=== PATIENT | male | born 1940 | race African-American/Black ===

== ENCOUNTER 2020-04-09 08:58 | Inpatient (IN) ==
[2020-04-09] MEDS ORDERED: DEXTROSE 50% 25 GM/50 ML VIAL IV PRN (09:26)
[2020-04-09] MEDS ORDERED: GLUCAGON 1 MG VIAL IM PRN ×2 (09:26)
[2020-04-09] MEDS ORDERED: DEXTROSE 10% 250 ML BAG IV PRN (09:26)
[2020-04-09] MEDS ORDERED: CEFUROXIME INJ 1,500 MG in SYRINGE 1 EACH IV ONE (09:26)
[2020-04-09] MEDS ORDERED: SODIUM CHLORIDE 0.9% 1,000 ML IV SCH (09:30)
[2020-04-09 09:59] LABS: Basophils % 0.4 % (0.0-0.8); Eosinophils # 0.1 10*3/uL (0.0-0.87); Hematocrit 29.2 VOL% (42.0-52.0); Hemoglobin 9.3 GM/DL (14.0-18.0); Immature Granulocytes % 0.4 %; Immature Granulocytes Absolute 0.02 #; Lymphocytes # 1.4 10*3/uL (1.4-4.0); Lymphocytes % 25.2 % (21.2-54.2); Mean Corpuscular HGB Conc 31.8 GM/DL (32-36); Mean Corpuscular Volume 93.3 FL (87-102); Mean Platelet Volume 9.8 FL (9.6-12.0); Monocytes % 7.1 % (1.7-12.7); Neutrophils % 64.9 % (38.7-73.9); Platelet Count 324 T/CUMM (130-400); Red Blood Count 3.13 MC/CUMM (3.8-5.5); Red Cell Distribution Width 14.7 % (9.3-17.3); White Blood Count 5.6 T/CUMM (4-12)
[2020-04-09 11:58] LABS: ABG Base Excess -1.8 MMOL/L (-2.5-2.5); ABG HCO3 22.9 MMOL/L (20-26); ABG PCO2 36.4 MM HG (35-48); ABG PO2 95.9 MM HG (80-95); ABG TCO2 20.7 MMOL/L (23-27); Allen Test Positive; Pt O2 Delivery Device Room Air
[2020-04-09] MEDS: INSULIN LISPRO 100 UNIT/ML SUBCUT SCH ×3 (13:42→22:03)
[2020-04-09] MEDS: oxyCODONE/ACETAMINOPHEN 5-325 MG TABLET PO PRN ×2 (14:17→23:53)
[2020-04-09 16:00] LABS: Alanine Aminotransferase 22 U/L (16-61); Albumin 2.7 G/DL (3.4-5.0); Alkaline Phosphatase 97 U/L (45-117); Aspartate Amino Transferase 23 U/L (0-37); Bilirubin,Total < 0.39 MG/DL (0.2-1.0); Blood Urea Nitrogen 29 MG/DL (7-18); Calcium 9.6 MG/DL (8.5-10.1); Estimated Glom Filtration Rate 69 ML/MIN; Glucose 246 MG/DL (74-106); Osmolality,Calculated 288.7 MOS/KG (273-304)
[2020-04-09] MEDS: CHLORHEXIDINE 4% SOLN 118 ML BOTTLE TOP SCH ×2 (16:38→22:03)
[2020-04-09] MEDS ORDERED: FAMOTIDINE 20 MG TABLET PO ONE (17:25)
[2020-04-09] MEDS ORDERED: DIAZEPAM 5 MG TABLET PO ONE (17:25)
[2020-04-09] MEDS: CHLORHEXIDINE 0.12% ORAL RINSE 60 ML BOTTLE SWISH/SPIT SCH (22:32)
[2020-04-10] MEDS: CHLORHEXIDINE 4% SOLN 118 ML BOTTLE TOP SCH ×2 (04:10→13:58)
[2020-04-10] MEDS ORDERED: VANCOMYCIN 1,000 MG VIAL ONE (04:23)
[2020-04-10] MEDS ORDERED: PAPAVERINE 60 MG/2 ML VIAL ONE (04:23)
[2020-04-10] MEDS ORDERED: VANCOMYCIN 500 MG VIAL ONE (04:23)
[2020-04-10] MEDS ORDERED: FAMOTIDINE 20 MG TABLET PO ONE (05:00)
[2020-04-10] MEDS ORDERED: CEFUROXIME INJ 1,500 MG in SYRINGE 1 EACH IV ONE (05:00)
[2020-04-10] MEDS ORDERED: SODIUM CHLORIDE 0.9% 1,000 ML IV SCH (05:00)
[2020-04-10] MEDS ORDERED: DIAZEPAM 5 MG TABLET PO ONE (05:00)
[2020-04-10] MEDS ORDERED: CALCIUM CHLORIDE 1,000 MG/10 ML VIAL IV ONE (05:51)
[2020-04-10] MEDS ORDERED: MIDAZOLAM 10 MG/2 ML VIAL ONE (05:52)
[2020-04-10] MEDS ORDERED: MINERAL OIL/PETROLATUM OPH OINT 3.5 GM TUBE ONE (05:52)
[2020-04-10] MEDS ORDERED: VECURONIUM 10 MG VIAL IV ONE (05:52)
[2020-04-10] MEDS ORDERED: SUFentanil 250 MCG/5 ML AMP ONE (05:52)
[2020-04-10] MEDS ORDERED: AMINOCAPROIC ACID 5,000 MG/20 ML VIAL ONE (05:52)
[2020-04-10 07:39] LABS: ABG HCO3 23.6 MMOL/L (20-26); ABG PCO2 34.6 MM HG (35-48); ABG PH 7.428 (7.35-7.45); Glucose Heart Surgery 155 MG/DL (74-106); Hematocrit Heart Surgery 28.1 PERCENT (42-52); Hemoglobin Heart Surgery 9.1 G/DL (14.0-18.0); Ionized Calcium Arterial 1.19 MMOL/L (1.21-1.46); PCO2 Patient Temp Arterial 34.6 MMHG; PH Patient Temp Arterial 7.428; Patient Temperature 37 CELCIUS; Potassium Heart/CVR 3.9 MMOL/L (3.5-5.1); Sodium Heart/CVR 138 MMOL/L (135-145)
[2020-04-10 08:17] LABS: Apearance,Urine CLEAR (Clear); Bilirubin,Urine Negative (Negative); Blood, Urine Negative (Negative); Glucose,Urine (UA) 50 mg/dL (Negative); Ketones,Urine Negative (Negative); Mucus,Urine Occasional /LPF (Occasional); Nitrite,Urine Negative (Negative); Protein,Urine Negative; RBC,Urine 2 /HPF (0-4); Urine Color Straw (Yellow); Urine Specific Gravity 1.009 (1.001-1.035); Urine Urobilinogen < 2.0 EU/DL (0.2-1.0)
[2020-04-10 10:03] LABS: Hematocrit Heart Surgery 21.5 PERCENT (42-52); Hemoglobin Heart Surgery 6.9 G/DL (14.0-18.0); PCO2 Patient Temp Venous 37.2 MM HG; PH Patient Temp Venous 7.409; PO2 Patient Temp Venous 35.4 MM HG; Potassium Heart/CVR 5.2 MMOL/L (3.5-5.1); VBG Base Excess -0.7 MEQ/L (0-4); VBG HCO3 23.6 MEQ/L (24-28); VBG Oxygen Saturation 76.6 %; VBG PH 7.366; VBG PO2 43.6 MMHG (17-40)
[2020-04-10 10:36] LABS: Hemoglobin Heart Surgery 8.1 G/DL (14.0-18.0); PCO2 Patient Temp Venous 31.7 MM HG; PH Patient Temp Venous 7.476; PO2 Patient Temp Venous 36.8 MM HG; Potassium Heart/CVR 4.4 MMOL/L (3.5-5.1); VBG Base Excess -0.6 MEQ/L (0-4); VBG HCO3 23.5 MEQ/L (24-28); VBG Oxygen Saturation 81.7 %; VBG PCO2 36.2 MMHG (41-51); VBG PH 7.431; VBG PO2 45.5 MMHG (17-40)
[2020-04-10] MEDS ORDERED: ALBUMIN 5% 12.5 GM/250 ML VIAL IV ONE ×3 (10:49→11:28)
[2020-04-10] MEDS ORDERED: PHENYLEPHRINE DRIP 40 MG/250 ML PREMIX IV ONE (10:55)
[2020-04-10] MEDS ORDERED: POTASSIUM CHLORIDE RIDER 100 ML IV ONE (10:56)
[2020-04-10 11:05] LABS: Hemoglobin Heart Surgery 8.2 G/DL (14.0-18.0); PCO2 Patient Temp Venous 32.7 MM HG; PH Patient Temp Venous 7.451; PO2 Patient Temp Venous 34.8 MM HG; Potassium Heart/CVR 4.8 MMOL/L (3.5-5.1); VBG Base Excess -1.4 MEQ/L (0-4); VBG HCO3 22.3 MEQ/L (24-28); VBG PCO2 32.7 MMHG (41-51); VBG PH 7.451; VBG PO2 34.8 MMHG (17-40)
[2020-04-10 11:25] LABS: ABG Base Excess -2.8 MMOL/L (-2.5-2.5); ABG HCO3 22.1 MMOL/L (20-26); ABG PH 7.407 (7.35-7.45); ABG TCO2 20.1 MMOL/L (23-27); Glucose Heart Surgery 278 MG/DL (74-106); Hematocrit Heart Surgery 23.7 PERCENT (42-52); Hemoglobin Heart Surgery 7.6 G/DL (14.0-18.0); Ionized Calcium Arterial 1.17 MMOL/L (1.21-1.46); PH Patient Temp Arterial 7.407; Patient Temperature 37 CELCIUS; Potassium Heart/CVR 4.1 MMOL/L (3.5-5.1); Sodium Heart/CVR 135 MMOL/L (135-145)
[2020-04-10] MEDS ORDERED: LIDOCAINE 2% 5 ML VIAL ONE ×2 (11:27→12:08)
[2020-04-10] MEDS ORDERED: MANNITOL 100 GM/500 ML BAG IV ONE (11:27)
[2020-04-10] MEDS ORDERED: methylPREDNISolone SOD SUC 1,000 MG/8 ML VIAL ONE (11:28)
[2020-04-10] MEDS ORDERED: SODIUM BICARBONATE 50 MEQ/50 ML VIAL IV ONE (11:28)
[2020-04-10] MEDS ORDERED: MAGNESIUM SULFATE 5 GM/10 ML VIAL IV ONE (11:28)
[2020-04-10] MEDS ORDERED: PROTAMINE SULFATE 250 MG/25 ML VIAL IV ONE (11:28)
[2020-04-10] MEDS ORDERED: ALBUMIN 25% 25 GM/100 ML VIAL IV ONE (11:28)
[2020-04-10] MEDS ORDERED: DEXTROSE 5% KCL 20 MEQ 20 MEQ/1,000 ML BAG IV ONE (11:28)
[2020-04-10] MEDS ORDERED: HEPARIN 10,000 UNIT/10 ML VIAL ONE (11:28)
[2020-04-10] MEDS ORDERED: FUROSEMIDE 20 MG/2 ML VIAL ONE (11:29)
[2020-04-10] MEDS ORDERED: PROTAMINE SULFATE 50 MG/5 ML VIAL IV ONE (11:29)
[2020-04-10] MEDS ORDERED: INSULIN REGULAR 100 UNIT/ML IV ONE (11:57)
[2020-04-10] MEDS ORDERED: NITROPRUSSIDE 100 MG in DEXTROSE 5% 250 ML IV PRN (11:57)
[2020-04-10] MEDS ORDERED: POTASSIUM CHLORIDE RIDER 10 MEQ in PREMIX 1 EACH IV PRN (11:57)
[2020-04-10] MEDS ORDERED: VECURONIUM 10 MG VIAL IV PRN ×2 (11:57)
[2020-04-10] MEDS ORDERED: MAGNESIUM SULF RIDER 2 GM in PREMIX 1 EACH IV PRN (11:57)
[2020-04-10] MEDS ORDERED: MIDAZOLAM 2 MG/2 ML VIAL IV PRN (11:57)
[2020-04-10] MEDS ORDERED: DEXTROSE 10% 250 ML BAG IV PRN ×2 (11:57)
[2020-04-10] MEDS ORDERED: ACETAMINOPHEN 650 MG SUPP RECTAL PRN (11:57)
[2020-04-10] MEDS ORDERED: MIDAZOLAM 10 MG/2 ML VIAL IV PRN (11:57)
[2020-04-10] MEDS ORDERED: LACTATED RINGERS 250 ML IV PRN (11:57)
[2020-04-10] MEDS ORDERED: CALCIUM CHLORIDE 1,000 MG/10 ML SYRINGE IV PRN (11:57)
[2020-04-10] MEDS ORDERED: INSULIN REGULAR 100 UNIT/ML IV PRN (11:57)
[2020-04-10] MEDS ORDERED: PHENYLEPHRINE DRIP 40 MG/250 ML PREMIX IV PRN (11:57)
[2020-04-10] MEDS ORDERED: MAGNESIUM SULF RIDER 4 GM in PREMIX 1 EACH IV PRN (11:57)
[2020-04-10] MEDS ORDERED: CHLORHEXIDINE 4% SOLN 118 ML BOTTLE TOP PRN (11:57)
[2020-04-10] MEDS ORDERED: MORPHINE 10 MG/1 ML VIAL IV PRN (11:57)
[2020-04-10] MEDS ORDERED: ONDANSETRON 4 MG/2 ML VIAL IV PRN (11:57)
[2020-04-10] MEDS: LACTATED RINGERS 1,000 ML IV PRN ×3 (12:00→16:47)
[2020-04-10] MEDS ORDERED: SODIUM CHLORIDE 0.45% 1,000 ML IV SCH ×2 (12:00)
[2020-04-10] MEDS ORDERED: SEVOFLURANE 1 UNIT/15 MINUTE INH ONE (12:08)
[2020-04-10] MEDS ORDERED: PHENYLEPHRINE DRIP 20 MG/250 ML PREMIX IV ONE (12:08)
[2020-04-10] MEDS ORDERED: HEPARIN/NACL 0.9% 2 UNITS/ML 500 ML IV ONE (12:08)
[2020-04-10] MEDS ORDERED: SODIUM CHLORIDE 0.9% 2,000 ML IV ONE (12:08)
[2020-04-10] MEDS ORDERED: SODIUM CHLORIDE 0.9% 100 ML IV ONE (12:08)
[2020-04-10] MEDS ORDERED: SODIUM CHLORIDE 0.9% 250 ML IV ONE (12:08)
[2020-04-10] MEDS ORDERED: ETOMIDATE 40 MG/20 ML VIAL IV ONE (12:08)
[2020-04-10 12:25] LABS: ABG Base Excess -0.5 MMOL/L (-2.5-2.5); ABG HCO3 23.3 MMOL/L (20-26); ABG Oxygen Saturation 98.9 % (95-100); ABG PCO2 34.9 MM HG (35-48); ABG PH 7.443 (7.35-7.45); ABG PO2 213.3 MM HG (80-95); ABG TCO2 24.4 MMOL/L (23-27); Glucose Heart Surgery 226 MG/DL (74-106); Hemoglobin Heart Surgery 8.5 G/DL (14.0-18.0); Potassium Heart/CVR 3.9 MMOL/L (3.5-5.1)
[2020-04-10 12:31] LABS: Basophils % 0.3 % (0.0-0.8); Eosinophils # 0.1 10*3/uL (0.0-0.87); Eosinophils % 0.8 % (0.00-10.9); Hematocrit 25.9 VOL% (42.0-52.0); Hemoglobin 8.2 GM/DL (14.0-18.0); Immature Granulocytes % 0.8 %; Immature Granulocytes Absolute 0.05 #; Lymphocytes % 15.5 % (21.2-54.2); Mean Corpuscular HGB Conc 31.7 GM/DL (32-36); Mean Corpuscular Volume 93.2 FL (87-102); Monocytes % 7.3 % (1.7-12.7); Neutrophils % 75.3 % (38.7-73.9); Platelet Count 265 T/CUMM (130-400); Red Blood Count 2.78 MC/CUMM (3.8-5.5); Red Cell Distribution Width 14.5 % (9.3-17.3); White Blood Count 6.3 T/CUMM (4-12)
[2020-04-10 12:39] LABS: INR 1.1; PT Patient Result 11.9 SECS (9.8-11.9); Partial Thromboplastin Time 29.5 SECS (23.9-33.8)
[2020-04-10] MEDS: POTASSIUM CHLORIDE RIDER 20 MEQ in PREMIX 1 EACH IV PRN ×2 (13:00→14:50)
[2020-04-10 13:11] LABS: Albumin 2.6 G/DL (3.4-5.0); Bilirubin,Total 0.6 MG/DL (0.2-1.0); Calcium 9.3 MG/DL (8.5-10.1); Osmolality,Calculated 283.7 MOS/KG (273-304); Total Protein 6.3 G/DL (6.4-8.3)
[2020-04-10 13:26] LABS: Troponin I 1.53 NG/ML (0.00-0.045)
[2020-04-10] MEDS: INSULIN REGULAR DRIP 100 ML IV SCH (13:26)
[2020-04-10] MEDS: INSULIN LISPRO 100 UNIT/ML SUBCUT SCH (13:57)
[2020-04-10] MEDS: CHLORHEXIDINE 0.12% ORAL RINSE 60 ML BOTTLE SWISH/SPIT SCH ×2 (13:59→20:13)
[2020-04-10 14:30] LABS: ABG Base Excess -2.9 MMOL/L (-2.5-2.5); ABG Oxygen Saturation 99.3 % (95-100); ABG PCO2 39.5 MM HG (35-48); ABG PH 7.359 (7.35-7.45); Glucose Heart Surgery 203 MG/DL (74-106); Hemoglobin Heart Surgery 11.4 G/DL (14.0-18.0); Potassium Heart/CVR 4.4 MMOL/L (3.5-5.1)
[2020-04-10] MEDS: ALBUMIN 5% 12.5 GM in PREMIX 1 EACH IV PRN ×4 (14:30→20:24)
[2020-04-10] MEDS: CEFUROXIME INJ 1,500 MG in SYRINGE 1 EACH IV SCH (19:19)
[2020-04-10 19:40] LABS: ABG Base Excess -2.2 MMOL/L (-2.5-2.5); ABG HCO3 22.6 MMOL/L (20-26); ABG Oxygen Saturation 99.4 % (95-100); ABG PCO2 37.1 MM HG (35-48); ABG PH 7.388 (7.35-7.45); ABG TCO2 20.5 MMOL/L (23-27); Glucose Heart Surgery 170 MG/DL (74-106); Hematocrit Heart Surgery 29.1 PERCENT (42-52); Hemoglobin Heart Surgery 9.4 G/DL (14.0-18.0); Potassium Heart/CVR 4.3 MMOL/L (3.5-5.1)
[2020-04-10] MEDS ORDERED: FUROSEMIDE 40 MG/4 ML VIAL IV ONE (19:59)
[2020-04-10] MEDS: MORPHINE 4 MG/1 ML VIAL IV PRN (20:13)
[2020-04-10 20:24] LABS: CKMB % 1.8 %
[2020-04-10 20:33] LABS: Troponin I 4.37 NG/ML (0.00-0.045)
[2020-04-10 21:08] LABS: ABG Base Excess -1.1 MMOL/L (-2.5-2.5); ABG HCO3 22.2 MMOL/L (20-26); ABG Oxygen Saturation 98.8 % (95-100); ABG PCO2 31.9 MM HG (35-48); ABG PH 7.461 (7.35-7.45); ABG PO2 172.5 MM HG (80-95); ABG TCO2 23.2 MMOL/L (23-27); Glucose Heart Surgery 155 MG/DL (74-106); Hemoglobin Heart Surgery 9.7 G/DL (14.0-18.0)
[2020-04-10 22:31] LABS: ABG Base Excess -1.1 MMOL/L (-2.5-2.5); ABG HCO3 23.5 MMOL/L (20-26); ABG Oxygen Saturation 99.6 % (95-100); ABG PH 7.415 (7.35-7.45); ABG TCO2 21.1 MMOL/L (23-27); Glucose Heart Surgery 166 MG/DL (74-106); Hemoglobin Heart Surgery 9.4 G/DL (14.0-18.0); Potassium Heart/CVR 4.1 MMOL/L (3.5-5.1)
[2020-04-11 00:38] LABS: ABG Base Excess -0.7 MMOL/L (-2.5-2.5); ABG HCO3 23.9 MMOL/L (20-26); ABG Oxygen Saturation 99.4 % (95-100); ABG PCO2 37.1 MM HG (35-48); ABG PH 7.413 (7.35-7.45); ABG TCO2 21.6 MMOL/L (23-27); Glucose Heart Surgery 136 MG/DL (74-106); Hematocrit Heart Surgery 29.4 PERCENT (42-52); Hemoglobin Heart Surgery 9.5 G/DL (14.0-18.0)
[2020-04-11] MEDS: MORPHINE 4 MG/1 ML VIAL IV PRN ×3 (01:06→06:26)
[2020-04-11 02:07] LABS: ABG Base Excess -1.1 MMOL/L (-2.5-2.5); ABG HCO3 23.5 MMOL/L (20-26); ABG Oxygen Saturation 99.2 % (95-100); ABG PCO2 42.4 MM HG (35-48); ABG PH 7.365 (7.35-7.45); ABG TCO2 22.3 MMOL/L (23-27); Glucose Heart Surgery 132 MG/DL (74-106); Hemoglobin Heart Surgery 9.4 G/DL (14.0-18.0); Potassium Heart/CVR 4.1 MMOL/L (3.5-5.1)
[2020-04-11 04:05] LABS: ABG Base Excess -1.6 MMOL/L (-2.5-2.5); ABG HCO3 23.1 MMOL/L (20-26); ABG Oxygen Saturation 98.3 % (95-100); ABG PCO2 38.6 MM HG (35-48); ABG PH 7.395 (7.35-7.45); ABG PO2 134.9 MM HG (80-95); ABG TCO2 24.3 MMOL/L (23-27); Glucose Heart Surgery 122 MG/DL (74-106); Hemoglobin Heart Surgery 9.8 G/DL (14.0-18.0); Potassium Heart/CVR 4.1 MMOL/L (3.5-5.1)
[2020-04-11 04:20] LABS: Basophils % 0.1 % (0.0-0.8); Hematocrit 28.7 VOL% (42.0-52.0); Hemoglobin 9.3 GM/DL (14.0-18.0); Immature Granulocytes % 0.4 %; Immature Granulocytes Absolute 0.04 #; Lymphocytes # 0.7 10*3/uL (1.4-4.0); Mean Corpuscular HGB Conc 32.4 GM/DL (32-36); Mean Corpuscular Volume 92.6 FL (87-102); Mean Platelet Volume 10.2 FL (9.6-12.0); Monocytes % 5.2 % (1.7-12.7); Neutrophils % 87.3 % (38.7-73.9); Platelet Count 256 T/CUMM (130-400); Red Cell Distribution Width 14.8 % (9.3-17.3)
[2020-04-11 04:29] LABS: Albumin 3.3 G/DL (3.4-5.0); Bilirubin,Direct 0.17 MG/DL (0.0-0.20); Bilirubin,Total 0.5 MG/DL (0.2-1.0); CKMB % 1.1 %; Calcium 8.8 MG/DL (8.5-10.1); Osmolality,Calculated 280.5 MOS/KG (273-304); Total Protein 6.8 G/DL (6.4-8.3)
[2020-04-11 04:31] LABS: Troponin I 7.93 NG/ML (0.00-0.045)
[2020-04-11] MEDS ORDERED: METOPROLOL TARTRATE 25 MG TABLET PO ONE (06:07)
[2020-04-11] MEDS: METOPROLOL TARTRATE 25 MG TABLET PO SCH ×2 (08:31→21:29)
[2020-04-11] MEDS: ASPIRIN EC 325 MG TABLET PO SCH (08:31)
[2020-04-11] MEDS: CHLORHEXIDINE 0.12% ORAL RINSE 60 ML BOTTLE SWISH/SPIT SCH ×2 (08:31→21:37)
[2020-04-11] MEDS: CEFUROXIME INJ 1,500 MG in SYRINGE 1 EACH IV SCH ×2 (08:32→21:29)
[2020-04-11] MEDS: INSULIN REGULAR 100 UNIT/ML SUBCUT SCH ×3 (08:32→21:29)
[2020-04-11] MEDS ORDERED: SODIUM CHLOR 0.45% KCL 20 MEQ 20 MEQ/1,000 ML BAG IV SCH ×2 (09:30→14:30)
[2020-04-11] MEDS: INSULIN REGULAR DRIP 100 ML IV SCH (13:02)
[2020-04-11 14:26] LABS: CKMB % 0.8 %
[2020-04-11 14:27] LABS: Troponin I 7.93 NG/ML (0.00-0.045)
[2020-04-11] MEDS ORDERED: MAGNESIUM HYDROXIDE SUSP 30 ML UDCUP PO PRN (14:30)
[2020-04-11] MEDS ORDERED: MAGNESIUM SULF RIDER 4 GM in PREMIX 1 EACH IV PRN (14:30)
[2020-04-11] MEDS ORDERED: GLUCAGON 1 MG VIAL IM PRN (14:30)
[2020-04-11] MEDS ORDERED: POTASSIUM CHLORIDE 20 MEQ TABLET PO PRN (14:30)
[2020-04-11] MEDS ORDERED: ACETAMINOPHEN 325 MG TABLET PO PRN (14:30)
[2020-04-11] MEDS ORDERED: DEXTROSE 50% 25 GM/50 ML VIAL IV PRN (14:30)
[2020-04-11] MEDS ORDERED: ALUMINUM/MAGNES/SIMETH MAX STR 30 ML UDCUP PO PRN (14:30)
[2020-04-11] MEDS ORDERED: ONDANSETRON 4 MG/2 ML VIAL IV PRN (14:30)
[2020-04-11] MEDS ORDERED: ZALEPLON 5 MG CAPSULE PO PRN (14:30)
[2020-04-11] MEDS ORDERED: MAGNESIUM SULF RIDER 2 GM in PREMIX 1 EACH IV PRN (14:30)
[2020-04-11] MEDS: ATORVASTATIN 40 MG TABLET PO SCH (21:29)
[2020-04-12] MEDS: INSULIN REGULAR 100 UNIT/ML SUBCUT SCH ×6 (01:26→21:38)
[2020-04-12 05:40] LABS: Basophils % 0.1 % (0.0-0.8); Hematocrit 29.9 VOL% (42.0-52.0); Hemoglobin 9.5 GM/DL (14.0-18.0); Immature Granulocytes % 0.4 %; Immature Granulocytes Absolute 0.05 #; Lymphocytes # 0.8 10*3/uL (1.4-4.0); Lymphocytes % 7.2 % (21.2-54.2); Mean Corpuscular HGB Conc 31.8 GM/DL (32-36); Mean Corpuscular Volume 93.1 FL (87-102); Mean Platelet Volume 10.5 FL (9.6-12.0); Neutrophils % 85.3 % (38.7-73.9); Platelet Count 278 T/CUMM (130-400); Red Blood Count 3.21 MC/CUMM (3.8-5.5); Red Cell Distribution Width 14.8 % (9.3-17.3); White Blood Count 11.2 T/CUMM (4-12)
[2020-04-12] MEDS ORDERED: FUROSEMIDE 40 MG/4 ML VIAL IV ONE (06:00)
[2020-04-12 06:37] LABS: Alanine Aminotransferase 19 U/L (16-61); Albumin 2.8 G/DL (3.4-5.0); Alkaline Phosphatase 82 U/L (45-117); Aspartate Amino Transferase 33 U/L (0-37); Bilirubin,Indirect 0.3 MG/DL (0.0-1.0); Blood Urea Nitrogen 29 MG/DL (7-18); Estimated Glom Filtration Rate 84 ML/MIN; Glucose 153 MG/DL (74-106)
[2020-04-12] MEDS: ASPIRIN EC 325 MG TABLET PO SCH (09:26)
[2020-04-12] MEDS: PANTOPRAZOLE 40 MG TABLET PO SCH (09:27)
[2020-04-12] MEDS: DOCUSATE SODIUM 100 MG CAPSULE PO SCH (09:27)
[2020-04-12] MEDS: METOPROLOL TARTRATE 25 MG TABLET PO SCH ×2 (09:27→21:48)
[2020-04-12] MEDS: FERROUS SULFATE 325 MG TABLET PO SCH (09:27)
[2020-04-12] MEDS: CHLORHEXIDINE 0.12% ORAL RINSE 60 ML BOTTLE SWISH/SPIT SCH ×2 (09:28→21:48)
[2020-04-12] MEDS: ATORVASTATIN 40 MG TABLET PO SCH (21:48)
[2020-04-13] MEDS: oxyCODONE/ACETAMINOPHEN 5-325 MG TABLET PO PRN (01:52)
[2020-04-13] MEDS: INSULIN REGULAR 100 UNIT/ML SUBCUT SCH ×6 (02:35→20:41)
[2020-04-13 05:57] LABS: Basophils % 0.1 % (0.0-0.8); Eosinophils % 0.4 % (0.00-10.9); Hematocrit 29.5 VOL% (42.0-52.0); Hemoglobin 9.4 GM/DL (14.0-18.0); Immature Granulocytes % 0.3 %; Immature Granulocytes Absolute 0.03 #; Lymphocytes # 2.1 10*3/uL (1.4-4.0); Lymphocytes % 22.8 % (21.2-54.2); Mean Corpuscular HGB Conc 31.9 GM/DL (32-36); Mean Corpuscular Volume 93.7 FL (87-102); Mean Platelet Volume 10.6 FL (9.6-12.0); Monocytes % 8.6 % (1.7-12.7); Neutrophils % 67.8 % (38.7-73.9); Platelet Count 276 T/CUMM (130-400); Red Blood Count 3.15 MC/CUMM (3.8-5.5); Red Cell Distribution Width 14.5 % (9.3-17.3); White Blood Count 9.3 T/CUMM (4-12)
[2020-04-13 06:05] LABS: Alanine Aminotransferase 22 U/L (16-61); Albumin 2.5 G/DL (3.4-5.0); Alkaline Phosphatase 82 U/L (45-117); Aspartate Amino Transferase 27 U/L (0-37); Bilirubin,Indirect 0.3 MG/DL (0.0-1.0); Blood Urea Nitrogen 24 MG/DL (7-18); Calcium 8.6 MG/DL (8.5-10.1); Estimated Glom Filtration Rate 93 ML/MIN; Glucose 160 MG/DL (74-106); Osmolality,Calculated 279.8 MOS/KG (273-304); Total Protein 6.4 G/DL (6.4-8.3)
[2020-04-13] MEDS: FERROUS SULFATE 325 MG TABLET PO SCH (09:29)
[2020-04-13] MEDS: GLIMEPIRIDE 2 MG TABLET PO SCH ×2 (09:29→20:38)
[2020-04-13] MEDS: METOPROLOL TARTRATE 25 MG TABLET PO SCH ×2 (09:29→20:38)
[2020-04-13] MEDS: DOCUSATE SODIUM 100 MG CAPSULE PO SCH (09:29)
[2020-04-13] MEDS: PANTOPRAZOLE 40 MG TABLET PO SCH (09:29)
[2020-04-13] MEDS: ASPIRIN EC 325 MG TABLET PO SCH (09:29)
[2020-04-13] MEDS: GABAPENTIN 300 MG CAPSULE PO SCH ×3 (09:29→20:38)
[2020-04-13] MEDS: amLODIPine 5 MG TABLET PO SCH (09:32)
[2020-04-13] MEDS: CHLORHEXIDINE 0.12% ORAL RINSE 60 ML BOTTLE SWISH/SPIT SCH ×2 (09:32→20:40)
[2020-04-13] MEDS: ATORVASTATIN 40 MG TABLET PO SCH (20:38)
[2020-04-14] MEDS: INSULIN REGULAR 100 UNIT/ML SUBCUT SCH ×6 (01:06→23:27)
[2020-04-14 06:08] LABS: Basophils % 0.3 % (0.0-0.8); Eosinophils # 0.1 10*3/uL (0.0-0.87); Hematocrit 30.8 VOL% (42.0-52.0); Hemoglobin 9.9 GM/DL (14.0-18.0); Immature Granulocytes % 0.3 %; Immature Granulocytes Absolute 0.02 #; Lymphocytes # 1.6 10*3/uL (1.4-4.0); Lymphocytes % 23.3 % (21.2-54.2); Mean Corpuscular HGB Conc 32.1 GM/DL (32-36); Mean Corpuscular Volume 93.6 FL (87-102); Mean Platelet Volume 10.5 FL (9.6-12.0); Monocytes % 10.6 % (1.7-12.7); Neutrophils % 63.5 % (38.7-73.9); Platelet Count 300 T/CUMM (130-400); Red Blood Count 3.29 MC/CUMM (3.8-5.5); Red Cell Distribution Width 14.2 % (9.3-17.3)
[2020-04-14 06:24] LABS: Calcium 8.5 MG/DL (8.5-10.1); Osmolality,Calculated 280.5 MOS/KG (273-304)
[2020-04-14] MEDS: GABAPENTIN 300 MG CAPSULE PO SCH ×3 (08:36→22:35)
[2020-04-14] MEDS: GLIMEPIRIDE 2 MG TABLET PO SCH ×2 (08:36→22:35)
[2020-04-14] MEDS: DOCUSATE SODIUM 100 MG CAPSULE PO SCH (08:36)
[2020-04-14] MEDS: ASPIRIN EC 325 MG TABLET PO SCH (08:36)
[2020-04-14] MEDS: metFORMIN 500 MG TABLET PO SCH (08:36)
[2020-04-14] MEDS: METOPROLOL TARTRATE 25 MG TABLET PO SCH ×2 (08:36→22:35)
[2020-04-14] MEDS: amLODIPine 5 MG TABLET PO SCH (08:36)
[2020-04-14] MEDS: FERROUS SULFATE 325 MG TABLET PO SCH (08:39)
[2020-04-14] MEDS: CHLORHEXIDINE 0.12% ORAL RINSE 60 ML BOTTLE SWISH/SPIT SCH ×2 (08:39→22:35)
[2020-04-14] MEDS: PANTOPRAZOLE 40 MG TABLET PO SCH (13:25)
[2020-04-14] MEDS: oxyCODONE/ACETAMINOPHEN 5-325 MG TABLET PO PRN (22:22)
[2020-04-14] MEDS: ATORVASTATIN 40 MG TABLET PO SCH (22:35)
[2020-04-15 06:05] LABS: Basophils % 0.3 % (0.0-0.8); Eosinophils # 0.2 10*3/uL (0.0-0.87); Eosinophils % 2.6 % (0.00-10.9); Hematocrit 31.1 VOL% (42.0-52.0); Hemoglobin 9.9 GM/DL (14.0-18.0); Immature Granulocytes % 0.5 %; Immature Granulocytes Absolute 0.03 #; Lymphocytes # 1.6 10*3/uL (1.4-4.0); Lymphocytes % 27.6 % (21.2-54.2); Mean Corpuscular HGB Conc 31.8 GM/DL (32-36); Mean Corpuscular Volume 94.5 FL (87-102); Mean Platelet Volume 10.6 FL (9.6-12.0); Monocytes % 10.4 % (1.7-12.7); Neutrophils % 58.6 % (38.7-73.9); Platelet Count 306 T/CUMM (130-400); Red Blood Count 3.29 MC/CUMM (3.8-5.5); Red Cell Distribution Width 14.1 % (9.3-17.3); White Blood Count 5.9 T/CUMM (4-12)
[2020-04-15 06:25] LABS: Alanine Aminotransferase 25 U/L (16-61); Albumin 2.4 G/DL (3.4-5.0); Alkaline Phosphatase 86 U/L (45-117); Aspartate Amino Transferase 19 U/L (0-37); Bilirubin,Direct < 0.100 MG/DL (0.0-0.20); Bilirubin,Indirect 0.7 MG/DL (0.0-1.0); Blood Urea Nitrogen 22 MG/DL (7-18); Calcium 8.6 MG/DL (8.5-10.1); Estimated Glom Filtration Rate 83 ML/MIN; Glucose 131 MG/DL (74-106); Osmolality,Calculated 279.7 MOS/KG (273-304); Total Protein 6.5 G/DL (6.4-8.3)
[2020-04-15] MEDS: INSULIN REGULAR 100 UNIT/ML SUBCUT SCH ×4 (08:31→22:23)
[2020-04-15] MEDS: PANTOPRAZOLE 40 MG TABLET PO SCH (08:32)
[2020-04-15] MEDS: ASPIRIN EC 325 MG TABLET PO SCH (08:32)
[2020-04-15] MEDS: DOCUSATE SODIUM 100 MG CAPSULE PO SCH (08:32)
[2020-04-15] MEDS: GABAPENTIN 300 MG CAPSULE PO SCH ×3 (08:32→22:23)
[2020-04-15] MEDS: METOPROLOL TARTRATE 25 MG TABLET PO SCH ×2 (08:32→22:23)
[2020-04-15] MEDS: amLODIPine 5 MG TABLET PO SCH (08:32)
[2020-04-15] MEDS: GLIMEPIRIDE 2 MG TABLET PO SCH ×2 (08:33→21:42)
[2020-04-15] MEDS: metFORMIN 500 MG TABLET PO SCH (08:33)
[2020-04-15] MEDS: FERROUS SULFATE 325 MG TABLET PO SCH (08:33)
[2020-04-15] MEDS: CHLORHEXIDINE 0.12% ORAL RINSE 60 ML BOTTLE SWISH/SPIT SCH ×2 (08:36→22:23)
[2020-04-15] MEDS: ATORVASTATIN 40 MG TABLET PO SCH (22:23)
[2020-04-16 06:42] LABS: Basophils % 0.1 % (0.0-0.8); Eosinophils # 0.2 10*3/uL (0.0-0.87); Eosinophils % 2.1 % (0.00-10.9); Hematocrit 28.5 VOL% (42.0-52.0); Hemoglobin 9.3 GM/DL (14.0-18.0); Immature Granulocytes % 0.3 %; Immature Granulocytes Absolute 0.02 #; Lymphocytes # 1.6 10*3/uL (1.4-4.0); Mean Corpuscular HGB Conc 32.6 GM/DL (32-36); Mean Corpuscular Volume 92.5 FL (87-102); Mean Platelet Volume 10.4 FL (9.6-12.0); Monocytes % 9.9 % (1.7-12.7); Neutrophils % 64.6 % (38.7-73.9); Platelet Count 300 T/CUMM (130-400); Red Blood Count 3.08 MC/CUMM (3.8-5.5); Red Cell Distribution Width 14.2 % (9.3-17.3)
[2020-04-16 07:11] LABS: Alanine Aminotransferase 21 U/L (16-61); Albumin 2.3 G/DL (3.4-5.0); Alkaline Phosphatase 86 U/L (45-117); Aspartate Amino Transferase 19 U/L (0-37); Bilirubin,Indirect 0.8 MG/DL (0.0-1.0); Blood Urea Nitrogen 22 MG/DL (7-18); Calcium 8.8 MG/DL (8.5-10.1); Estimated Glom Filtration Rate 92 ML/MIN; Glucose 101 MG/DL (74-106); Osmolality,Calculated 275.8 MOS/KG (273-304); Total Protein 6.5 G/DL (6.4-8.3)
[2020-04-16] MEDS: DOCUSATE SODIUM 100 MG CAPSULE PO SCH (08:58)
[2020-04-16] MEDS: metFORMIN 500 MG TABLET PO SCH (08:58)
[2020-04-16] MEDS: METOPROLOL TARTRATE 25 MG TABLET PO SCH ×2 (08:58→21:38)
[2020-04-16] MEDS: GABAPENTIN 300 MG CAPSULE PO SCH ×3 (08:58→21:38)
[2020-04-16] MEDS: FERROUS SULFATE 325 MG TABLET PO SCH (08:59)
[2020-04-16] MEDS: amLODIPine 5 MG TABLET PO SCH (08:59)
[2020-04-16] MEDS: GLIMEPIRIDE 2 MG TABLET PO SCH ×2 (08:59→21:38)
[2020-04-16] MEDS: ASPIRIN EC 325 MG TABLET PO SCH (08:59)
[2020-04-16] MEDS: PANTOPRAZOLE 40 MG TABLET PO SCH (08:59)
[2020-04-16] MEDS: INSULIN REGULAR 100 UNIT/ML SUBCUT SCH ×4 (09:00→21:41)
[2020-04-16] MEDS: CHLORHEXIDINE 0.12% ORAL RINSE 60 ML BOTTLE SWISH/SPIT SCH ×2 (09:00→21:41)
[2020-04-16] MEDS: ATORVASTATIN 40 MG TABLET PO SCH (21:38)
[2020-04-17 04:35] LABS: Basophils % 0.2 % (0.0-0.8); Eosinophils # 0.1 10*3/uL (0.0-0.87); Hematocrit 28.4 VOL% (42.0-52.0); Hemoglobin 9.3 GM/DL (14.0-18.0); Immature Granulocytes % 0.3 %; Immature Granulocytes Absolute 0.02 #; Lymphocytes # 1.5 10*3/uL (1.4-4.0); Lymphocytes % 23.5 % (21.2-54.2); Mean Corpuscular HGB Conc 32.7 GM/DL (32-36); Mean Corpuscular Volume 93.1 FL (87-102); Mean Platelet Volume 10.6 FL (9.6-12.0); Monocytes % 9.7 % (1.7-12.7); Neutrophils % 64.3 % (38.7-73.9); Platelet Count 307 T/CUMM (130-400); Red Blood Count 3.05 MC/CUMM (3.8-5.5); Red Cell Distribution Width 14.2 % (9.3-17.3); White Blood Count 6.4 T/CUMM (4-12)
[2020-04-17] MEDS: metFORMIN 500 MG TABLET PO SCH (09:18)
[2020-04-17] MEDS: amLODIPine 5 MG TABLET PO SCH (09:18)
[2020-04-17] MEDS: ASPIRIN EC 325 MG TABLET PO SCH (09:18)
[2020-04-17] MEDS: GLIMEPIRIDE 2 MG TABLET PO SCH ×2 (09:18→21:38)
[2020-04-17] MEDS: FERROUS SULFATE 325 MG TABLET PO SCH (09:18)
[2020-04-17] MEDS: DOCUSATE SODIUM 100 MG CAPSULE PO SCH (09:18)
[2020-04-17] MEDS: METOPROLOL TARTRATE 25 MG TABLET PO SCH ×2 (09:18→21:39)
[2020-04-17] MEDS: GABAPENTIN 300 MG CAPSULE PO SCH ×3 (09:18→21:38)
[2020-04-17] MEDS: INSULIN REGULAR 100 UNIT/ML SUBCUT SCH ×4 (09:19→22:38)
[2020-04-17] MEDS: CHLORHEXIDINE 0.12% ORAL RINSE 60 ML BOTTLE SWISH/SPIT SCH ×2 (09:23→21:40)
[2020-04-17] MEDS: PANTOPRAZOLE 40 MG TABLET PO SCH (09:23)
[2020-04-17] MEDS: ATORVASTATIN 40 MG TABLET PO SCH (21:39)
[2020-04-18 05:35] LABS: Basophils % 0.4 % (0.0-0.8); Eosinophils # 0.1 10*3/uL (0.0-0.87); Eosinophils % 2.1 % (0.00-10.9); Hemoglobin 9.3 GM/DL (14.0-18.0); Immature Granulocytes % 0.4 %; Immature Granulocytes Absolute 0.02 #; Lymphocytes # 1.4 10*3/uL (1.4-4.0); Lymphocytes % 25.7 % (21.2-54.2); Mean Corpuscular HGB Conc 32.1 GM/DL (32-36); Mean Corpuscular Volume 94.8 FL (87-102); Mean Platelet Volume 10.8 FL (9.6-12.0); Monocytes % 11.4 % (1.7-12.7); Platelet Count 330 T/CUMM (130-400); Red Blood Count 3.06 MC/CUMM (3.8-5.5); Red Cell Distribution Width 14.4 % (9.3-17.3); White Blood Count 5.6 T/CUMM (4-12)
[2020-04-18 06:02] LABS: Calcium 8.8 MG/DL (8.5-10.1)
[2020-04-18] MEDS: DOCUSATE SODIUM 100 MG CAPSULE PO SCH (08:54)
[2020-04-18] MEDS: ASPIRIN EC 325 MG TABLET PO SCH (08:55)
[2020-04-18] MEDS: METOPROLOL TARTRATE 25 MG TABLET PO SCH ×2 (08:55→22:50)
[2020-04-18] MEDS: metFORMIN 500 MG TABLET PO SCH (08:55)
[2020-04-18] MEDS: PANTOPRAZOLE 40 MG TABLET PO SCH (08:55)
[2020-04-18] MEDS: amLODIPine 5 MG TABLET PO SCH (08:56)
[2020-04-18] MEDS: FERROUS SULFATE 325 MG TABLET PO SCH (08:56)
[2020-04-18] MEDS: GLIMEPIRIDE 2 MG TABLET PO SCH ×2 (08:56→22:49)
[2020-04-18] MEDS: CHLORHEXIDINE 0.12% ORAL RINSE 60 ML BOTTLE SWISH/SPIT SCH ×2 (08:56→22:50)
[2020-04-18] MEDS: GABAPENTIN 300 MG CAPSULE PO SCH ×3 (08:56→22:49)
[2020-04-18] MEDS: INSULIN REGULAR 100 UNIT/ML SUBCUT SCH ×4 (09:04→22:51)
[2020-04-18] MEDS: ATORVASTATIN 40 MG TABLET PO SCH (22:49)
[2020-04-19 07:33] LABS: Calcium 8.5 MG/DL (8.5-10.1); Osmolality,Calculated 278.7 MOS/KG (273-304)
[2020-04-19] MEDS: DOCUSATE SODIUM 100 MG CAPSULE PO SCH (10:06)
[2020-04-19] MEDS: amLODIPine 5 MG TABLET PO SCH (10:06)
[2020-04-19] MEDS: metFORMIN 500 MG TABLET PO SCH (10:06)
[2020-04-19] MEDS: GABAPENTIN 300 MG CAPSULE PO SCH (10:06)
[2020-04-19] MEDS: CHLORHEXIDINE 0.12% ORAL RINSE 60 ML BOTTLE SWISH/SPIT SCH (10:06)
[2020-04-19] MEDS: GLIMEPIRIDE 2 MG TABLET PO SCH (10:07)
[2020-04-19] MEDS: ASPIRIN EC 325 MG TABLET PO SCH (10:07)
[2020-04-19] MEDS: METOPROLOL TARTRATE 25 MG TABLET PO SCH (10:07)
[2020-04-19] MEDS: PANTOPRAZOLE 40 MG TABLET PO SCH (10:07)
[2020-04-19] MEDS: INSULIN REGULAR 100 UNIT/ML SUBCUT SCH (10:07)
[2020-04-19] MEDS: FERROUS SULFATE 325 MG TABLET PO SCH (10:07)
[2020-04-19 11:21] VITALS: BP 97/68
== END 2020-04-19 12:12 | disposition home health service (06) | DRG 236 ==
LOC: SUPCPDRO 08:58 → N.TELES 08:58 → N.CVR 04-10 11:49 → N.TELES 04-11 14:24